=== PATIENT | female | born 1985 | race Caucasian/White ===

== ENCOUNTER 2017-01-03 08:57 | Day surgery (SDC) | payer OTHER ==
[~2017-01-03] VITALS: Ht 167.6 cm
--- NOTE | 2017-01-04 07:43 | OR ---
ADMIT: 01/03/2017 RM/LOC: [facility] MR#: [id number] [address] JUAN SANCHEZ [address] [place] [id number] Operative/Delivery Room Report SEX: F AGE: 31 : 1985 SURGERY DATE: 01/03/2017 SURGEON: Johanny Farris MD BRUSH FILLER HAND: None. PREPROCEDURE DIAGNOSES: 1. Lumbar disk degeneration. 2. Lumbosacral neuritis. POSTPROCEDURE DIAGNOSES: 1. Lumbar disk degeneration. 2. Lumbosacral neuritis. PROCEDURE PERFORMED: L5-S1 interlaminar epidural steroid injection. INDICATIONS FOR PROCEDURE: The patient is a pleasant female with a history of chronic low back pain with radicular symptoms, comes here for planned lumbar epidural steroid injection. ANESTHESIA: Local without sedation. ESTIMATED BLOOD LOSS: Zero. COMPLICATIONS: None immediately evident. DESCRIPTION OF PROCEDURE: After the patient was seen in the preoperative area, vitals signs were taken. Prior to the procedure, the risks, benefits, and alternative therapies were discussed at length. Patient consent was obtained and updated. The patient was taken to the fluoroscopy suite and placed on the fluoroscopy table in the prone position. Pressure points were padded to comfort, monitors applied, and a timeout performed. Fluoroscopy was brought in. The patient was sterilely prepped and draped in the usual manner with ChloraPrep solution, and 1% lidocaine was used to anesthetize the appropriate needle entry site. Utilizing a midline approach, ADMIT: 01/03/2017 RM/LOC: [facility] MR#: [id number] [address] JUAN SANCHEZ [address] [place] [id number] Operative/Delivery Room Report SEX: F AGE: 31 : 1985 continuous loss of resistance technique with preservative-free normal saline and intermittent fluoroscopic guidance, the posterior epidural space was easily entered. Once the epidural space had been entered through L5-S1, the patient was injected with 2 mL of Isovue-300 and outlining of the posterior epidural space was observed with no evidence of vascular uptake and intrathecal migration. Next, a solution consisting of 10 mL of preservative- free normal saline and 80 mg of Depo-Medrol was injected. The needle was withdrawn. The patient was escorted back to the preoperative area and observed for a period of time. PLAN: Discharge instructions were given, followup scheduled. 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 Johanny Farris MD/ casimiro JOB #: [id number] CC: Johanny Farris, Attending Physician NO FAMILY PHYSICIAN, Family Physician
== END 2017-01-03 10:05 | disposition home or self-care (01) ==
LOC: SSS 08:57
PROC: 3E0S33Z Introduction of Anti-inflammatory into Epidural Space, Percutaneous Approach (ICD-10-PCS; principal; 2017-01-03)
PROC: 3E0S3BZ Introduction of Anesthetic Agent into Epidural Space, Percutaneous Approach (ICD-10-PCS; principal; 2017-01-03)
DX: G89.29 Other chronic pain (principal); M51.17 Intervertebral disc disorders with radiculopathy, lumbosacral region; M47.26 Other spondylosis with radiculopathy, lumbar region; M79.1 Myalgia; M53.3 Sacrococcygeal disorders, not elsewhere classified; Z88.2 Allergy status to sulfonamides; Z79.899 Other long term (current) drug therapy; Z87.442 Personal history of urinary calculi; Z98.890 Other specified postprocedural states

== ENCOUNTER 2017-03-13 09:07 | Day surgery (SDC) | payer OTHER ==
[~2017-03-13] VITALS: Ht 167.6 cm
--- NOTE | 2017-03-15 08:10 | OR ---
ADMIT: 03/13/2017 RM/LOC: [facility] MR#: [id number] [address] [address] JUAN SANCHEZ [address] [place] [address] Operative/Delivery Room Report SEX: F AGE: 32 : 1985 SURGERY DATE: 03/13/2017 SURGEON: Johanny Farris MD OCEAN IMPORT REPRESENTATIVE: None. PREPROCEDURE DIAGNOSES: 1. Bilateral sacroiliac joint dysfunction. 2. Chronic low back pain. POSTPROCEDURE DIAGNOSES: 1. Bilateral sacroiliac joint dysfunction. 2. Chronic low back pain. PROCEDURE PERFORMED: Bilateral sacroiliac joint injection. INDICATIONS FOR PROCEDURE: The patient is a pleasant female with history of chronic low back pain secondary to above-mentioned diagnoses comes here for planned bilateral SI joint injection. ANESTHESIA: Local without sedation. ESTIMATED BLOOD LOSS: Zero. COMPLICATIONS: None immediately evident. DESCRIPTION OF PROCEDURE: After the patient was seen in the preoperative area, vitals signs were taken. Prior to the procedure, the risks, benefits, and alternative therapies were discussed at length. Patient consent was obtained and updated. The patient was taken to the fluoroscopy suite and placed on the fluoroscopy table in the prone position. Pressure points were padded to comfort, monitors applied, and a timeout performed. C-arm was brought in to identify the right SI joint. Lidocaine plain 1%, approximately 2 mL, was used to anesthetize the skin and underlying subcutaneous tissue. A 3.5-inch 22-gauge curved-tip needle was then advanced through the anesthetized skin and placed inside the inferior portion of the SI ADMIT: 03/13/2017 RM/LOC: [facility] MR#: [id number] [address] [address] JUAN SANCHEZ [address] [place] [address] Operative/Delivery Room Report SEX: F AGE: 32 : 1985 joint. Isovue-300 was injected into the SI joint and showed good spread into the SI joint. After correct placement was confirmed, 5 mL of 0.25% Marcaine and 40 mg of Depo-Medrol were injected. Then moved on to the left side and repeated the same procedure. The patient tolerated the procedure well without any complications. The patient was then brought to PACU where she recovered nicely. PLAN: The patient was examined after 20 minutes and had 80% reduction of pain. Discharge instructions were given, followup scheduled. 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 Johanny Farris MD/ casimiro JOB #: [id number] CC: Johanny Farris, Attending Physician FAMILY PHYSICIAN, Family Physician
== END 2017-03-13 10:24 | disposition home or self-care (01) ==
LOC: SSS 09:07
PROC: 3E0U3BZ Introduction of Anesthetic Agent into Joints, Percutaneous Approach (ICD-10-PCS; principal; 2017-03-13)
PROC: 3E0U33Z Introduction of Anti-inflammatory into Joints, Percutaneous Approach (ICD-10-PCS; principal; 2017-03-13)
DX: G89.29 Other chronic pain (principal); M53.3 Sacrococcygeal disorders, not elsewhere classified; M47.26 Other spondylosis with radiculopathy, lumbar region; Z88.2 Allergy status to sulfonamides; F17.200 Nicotine dependence, unspecified, uncomplicated; Z87.442 Personal history of urinary calculi; Z87.440 Personal history of urinary (tract) infections; Z98.890 Other specified postprocedural states